=== PATIENT | male | born 2000 | race Asian ===

== ENCOUNTER → 2025-02-08 | Outpatient (CLI) | payer OTHER ==
[~2025-02-08] MED LIST: ISOVUE-370 76% 100 ML VIAL As Ordered ONE
== END ==
LOC: M RAD 16:43
PROVIDERS: ATTEND Physician Assistant
DX: R10.2 Pelvic and perineal pain (principal)

== ENCOUNTER 2025-03-23 21:50 | Emergency (ER) | payer OTHER ==
[~2025-03-23] VITALS: Ht 175.3 cm; Wt 96.0 kg
[2025-03-24] MEDS ORDERED: PRED20TA PO (04:35)
[2025-03-24] MEDS ORDERED: BENZ200C70 PO (04:35)
[2025-03-24 04:55] VITALS: BP 142/86; TEMP 98.2; O2SAT 100
[2025-03-24] MEDS: BENZONATATE 100 MG CAPSULE PO ONE (04:58)
[2025-03-24] MEDS: ALBUTEROL 90 MCG/ACT 8 GM HFA INHALER INH ONE (04:58)
[2025-03-24] MEDS: predniSONE 20 MG TAB PO ONE (04:59)
== END 2025-03-24 05:00 | disposition home or self-care (01) ==
LOC: M ED 21:50
DX: J20.6 Acute bronchitis due to rhinovirus (principal); Z79.52 Long term (current) use of systemic steroids; Z79.899 Other long term (current) drug therapy
CPT/HCPCS: 87486; 87581; 87633; 87798; 99284; J7512